=== PATIENT | female | born 1995 | race Caucasian/White ===

== ENCOUNTER 2020-10-04 13:25 | Emergency (ER) | payer OTHER ==
[2020-10-04 14:11] LABS: Urine Blood 2+ (NEG); Urine Glucose NEGATIVE (NEG); Urine Protein 2+ (NEG)
[2020-10-04 14:11] LABS: Absolute Lymphocytes (CBC) 2.3 K/uL (0.7-4.9); Basophils % 0.7 % (0-1.3); Hematocrit 37.2 % (36.0-45.0); Lymphocytes % 23.8 % (15.3-44.8); MPV 9.3 fL (7.6-11.3); RBC Red Blood Cell Count 4.47 M/uL (3.86-4.86)
[2020-10-04 14:54] LABS: Potassium 3.4 mmol/L (3.5-5.1)
[2020-10-04] MEDS ORDERED: NA CHLORIDE 0.9% 1,000 ML ONE (15:02)
--- NOTE | 2020-10-04 16:18 | RAD REPORT ---
EXAM DESCRIPTION: US - 1St Trimest Single 1St Fetus - 10/04/2020 3:41 pm CLINICAL HISTORY: with vaginal bleeding COMPARISON: None. FINDINGS: The uterus measures 9 x 5 x 5 centimeters. A normal appearing gestational sac is present within the endometrium. Within this is a yolk sac and pole with a crown-rump length 2.2 centime ters. Cardiac activity 182 beats per minute 2 centimeter subchorionic bleed Right and left ovary appear normal. . Right and left adnexa unremarkable No significant free fluid is seen. IMPRESSION: Single live intrauterine with an estimated gestational age 8 weeks 5 days AUBREY 05/11/2021 2 centimeter subchorionic bleed
--- NOTE | 2020-10-04 16:35 | EDPHYS ---
Physician Documentation [facility] Name: Sven Richards Age: 24 yrs Sex: Female : 1995 Arrival Date: 10/04/2020 Time: 13:27 Bed 20 Private MD: ED Physician Suman Montano HPI: 10/04 13:52 This 24 yrs old Female presents to ER via Ambulatory with complaints of pm1 Vaginal Bleeding, + Preg <12wks. 13:52 The patient presents to the emergency department with vaginal bleeding, that is light, pm1 present with wiping. The estimated gestational age is 10 weeks. course: care: private OB physician, Last seen OB 3 weeks ago, Leakage of Fluid: none appreciated, Ultrasound: the patient has not had an ultrasound, Risk/complications: no obvious risks or complications are appreciated. Previous pregnancies: in previous pregnancies patient has had hypertension with prior . Associated signs and symptoms: Pertinent positives: vaginal bleeding, Pertinent negatives: abdominal pain, chest pain, diarrhea, dysuria, fever, nausea, vaginal discharge, vomiting. The patient has not experienced similar symptoms in the past. Onset this AM. 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 - Social history:: Smoking status: Patient denies any tobacco usage or history of. ROS: 13:52 Constitutional: Negative for fever, chills, and weight loss, Cardiovascular: Negative pm1 for chest pain, palpitations, and edema, Respiratory: Negative for shortness of breath, cough, wheezing, and pleuritic chest pain, Abdomen/GI: Negative for abdominal pain, nausea, vomiting, diarrhea, and constipation, Back: Negative for injury and pain, MS/Extremity: Negative for injury and deformity, Skin: Negative for injury, rash, and discoloration, Neuro: Negative for headache, weakness, numbness, tingling, and seizure. 13:52 : Positive for vaginal bleeding, Negative for urinary symptoms, pelvic pain, flank pain, vaginal discharge. Exam: 13:52 Constitutional: This is a well developed, well nourished patient who is awake, alert, pm1 and in no acute distress. Head/Face: Normocephalic, atraumatic. 13:52 Back: No spinal tenderness. No costovertebral tenderness. Full range of motion. Skin: Warm, dry with normal turgor. Normal color with no rashes, no lesions, and no evidence of cellulitis. MS/ Extremity: Pulses equal, no cyanosis. Neurovascular intact. Full, normal range of motion. 13:52 Cardiovascular: Exam negative for acute changes, Rate: normal, Rhythm: regular, Pulses: no pulse deficits are appreciated. 13:52 Respiratory: Exam negative for acute changes, respiratory distress, shortness of breath. 13:52 Abdomen/GI: Inspection: abdomen appears normal, Palpation: abdomen is soft and non-tender, in all quadrants. 13:52 Neuro: Exam negative for acute changes, Orientation: is normal, Mentation: is normal, Motor: is normal, moves all fours, Gait: is steady, at a normal pace, without difficulty. Vital Signs: 13:30 BP 137 / 84; Pulse 91; Resp 17 S; Temp 98.0(O); Pulse Ox 100% on R/A; Weight 81.65 kg jd3 (R); Height 5 ft. 5 in. (165.10 cm) (R); Pain 1/10; 14:27 BP 118 / 66; Pulse 88; Resp 16; Pulse Ox 100% ; bp 15:30 BP 124 / 77; Pulse 81; Resp 16; Pulse Ox 100% ; bp 16:30 BP 125 / 78; Pulse 88; Resp 17; Temp 98; Pulse Ox 100% ; bp 13:30 Body Mass Index 29.95 (81.65 kg, 165.10 cm) jd3 MDM: 13:41 ED course: Discussed plan of care in the ER with the patient and . They had no pm1 further questions or concerns. 13:52 Patient medically screened. pm1 14:02 Data reviewed: vital signs. Data interpreted: Pulse oximetry: on room air is 100 %. pm1 Interpretation: normal. 16:33 Counseling: I had a detailed discussion with the patient and/or guardian regarding: the pm1 historical points, exam findings, and any diagnostic results supporting the discharge/admit diagnosis, lab results, radiology results, the need for outpatient follow up, for definitive care, an OB/Gyne specialist, to return to the emergency department if symptoms worsen or persist or if there are any questions or concerns that arise at home. 10/04 13:40 Order name: Quantitative Hcg; Complete Time: 15:05 pm1 10/04 13:40 Order name: Abo/rh Typing; Complete Time: 14:43 pm1 10/04 13:40 Order name: Basic Metabolic Panel; Complete Time: 15:05 pm1 10/04 13:40 Order name: CBC with Diff; Complete Time: 14:43 pm1 10/04 14:01 Order name: Urine Dipstick--Ancillary (enter results); Complete Time: 14:43 eb 10/04 14:01 Order name: Urine --Ancillary (enter results); Complete Time: 14:43 eb 10/04 13:40 Order name: Urine Test (obtain specimen); Complete Time: 14:26 pm1 10/04 13:40 Order name: IV Saline Lock; Complete Time: 14:26 pm1 10/04 13:40 Order name: Labs collected and sent; Complete Time: 14:26 pm1 10/04 13:40 Order name: NPO; Complete Time: 13:41 pm1 10/04 13:40 Order name: Urine Dipstick-Ancillary (obtain specimen); Complete Time: 14:26 pm1 10/04 15:42 Order name: 1St Trimest Single 1St Fetus; Complete Time: 16:33 EDMS Administered Medications: 14:48 Drug: NS 0.9% 1000 ml Route: IV; Rate: 1000 ml; Site: right antecubital; bp 16:49 Follow up: IV Status: Completed infusion; IV Intake: 1000ml bp Disposition: 10/05 11:10 Co-signature as Attending Physician, Suman Montano MD I agree with the assessment ma2 and plan of care. Disposition: 10/04/20 16:34 Discharged to Home. Impression: Threatened . - Condition is Stable. - Discharge Instructions: Threatened Miscarriage, Pelvic Rest. - Medication Reconciliation Form, Thank You Letter, Antibiotic Education, Prescription Opioid Use form. - Follow up: Emergency Department; When: As needed; Reason: Worsening of condition. Follow up: Private Physician; When: 2 - 3 days; Reason: Recheck today's complaints, Continuance of care, Re-evaluation by your physician. - Problem is new. - Symptoms have improved. Signatures: Dispatcher [employer] [facility] Good Nava, FUR BLOWER FUR BLOWER pm1 Andrea Michelle, RN RN jd3 Bravo Cox RN RN bp Suman Montano MD MD ma2 Corrections: (The following items were deleted from the chart) 10/04 15:42 13:41 Transvaginal Ob+US.RAD.BRZ ordered. [facility] 16:50 16:34 10/04/2020 16:34 Discharged to Home. Impression: Threatened . Condition bp is Stable. Forms are Medication Reconciliation Form, Thank You Letter, Antibiotic Education, Prescription Opioid Use. Follow up: Emergency Department; When: As needed; Reason: Worsening of condition. Follow up: Private Physician; When: 2 - 3 days; Reason: Recheck today's complaints, Continuance of care, Re-evaluation by your physician. Problem is new. Symptoms have improved. pm1
--- NOTE | 2020-10-04 16:35 | ER ---
Nurse's Notes [facility] Name: Sven Richards Age: 24 yrs Sex: Female : 1995 Arrival Date: 10/04/2020 Time: 13:27 Bed 20 Private MD: Diagnosis: Threatened Presentation: 10/04 13:28 Chief complaint: Patient states: "I am about 10 weeks and I started having jd3 bleeding today.". Coronavirus screen: At this time, the client does not indicate any symptoms associated with coronavirus-19. Ebola Screen: Patient negative for fever greater than or equal to 101.5 degrees Fahrenheit, and additional compatible Ebola Virus Disease symptoms. Initial Sepsis Screen: Does the patient meet any 2 criteria? No. Patient's initial sepsis screen is negative. Does the patient have a suspected source of infection? No. Patient's initial sepsis screen is negative. Risk Assessment: Do you want to hurt yourself or someone else? Patient reports no desire to harm self or others. Onset of symptoms was October 04, 2020. 13:28 Method Of Arrival: Ambulatory j 13:28 Acuity: ABDI 3 jd3 Triage Assessment: 13:30 General: Appears in no apparent distress. comfortable, Behavior is cooperative, bp appropriate for age, anxious. Pain: Denies pain. EENT: No deficits noted. Neuro: No deficits noted. Cardiovascular: No deficits noted. Respiratory: No deficits noted. GI: No signs and/or symptoms were reported involving the gastrointestinal system. : Reports vaginal bleeding that is spotty. Derm: No deficits noted. Musculoskeletal: No deficits noted. 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 - Social history:: Smoking status: Patient denies any tobacco usage or history of. Screenin:34 Abuse screen: Denies threats or abuse. Denies injuries from another. Nutritional bp screening: No deficits noted. Tuberculosis screening: No symptoms or risk factors identified. Fall Risk None identified. Assessment: 13:34 Obstetrical Assessment: General assessment: awake and alert, skin warm and dry, bp respirations even and unlabored. General: SEE TRIAGE NOTE. 14:30 Reassessment: Patient appears in no apparent distress at this time. No changes from bp previously documented assessment. U/S PENDING. 15:29 Reassessment: Patient appears in no apparent distress at this time. No changes from bp previously documented assessment. Patient is alert, oriented x 3, equal unlabored respirations, skin warm/dry/pink. U/S AT B/S. 16:47 Reassessment: PT D/C HOME AMBULATORY WITH FAMILY, DX WITH THREATENED . bp Vital Signs: 13:30 BP 137 / 84; Pulse 91; Resp 17 S; Temp 98.0(O); Pulse Ox 100% on R/A; Weight 81.65 kg jd3 (R); Height 5 ft. 5 in. (165.10 cm) (R); Pain 1/10; 14:27 BP 118 / 66; Pulse 88; Resp 16; Pulse Ox 100% ; bp 15:30 BP 124 / 77; Pulse 81; Resp 16; Pulse Ox 100% ; bp 16:30 BP 125 / 78; Pulse 88; Resp 17; Temp 98; Pulse Ox 100% ; bp 13:30 Body Mass Index 29.95 (81.65 kg, 165.10 cm) jd3 ED Course: 13:27 Patient arrived in ED. as 13:29 Triage completed. jd3 13:32 Bravo Cox, CRISTÓBAL is Primary Nurse. bp 13:32 Good Nava NP is PHCP. pm1 13:32 Suman Montano MD is Attending Physician. pm1 13:32 Arm band placed on. jd3 13:34 Patient has correct armband on for positive identification. Bed in low position. Call bp light in reach. Side rails up X2. 13:55 Inserted saline lock: 20 gauge in right antecubital area, using aseptic technique. bp Blood collected. 15:42 1St Trimest Single 1St Fetus In Process Unspecified. EDMS 16:48 No provider procedures requiring assistance completed. IV discontinued, intact, bp bleeding controlled, No redness/swelling at site. Pressure dressing applied. Administered Medications: 14:48 Drug: NS 0.9% 1000 ml Route: IV; Rate: 1000 ml; Site: right antecubital; bp 16:49 Follow up: IV Status: Completed infusion; IV Intake: 1000ml bp Intake: 16:49 IV: 1000ml; Total: 1000ml. bp Outcome: 16:34 Discharge ordered by . pm1 16:48 Discharged to home ambulatory, with family. bp 16:48 Condition: stable 16:48 Discharge instructions given to patient, Instructed on discharge instructions, follow up and referral plans. safe sex practices, Demonstrated understanding of instructions, follow-up care. 16:50 Patient left the ED. bp Signatures: Dispatcher [employer] EDVeronica Payne Patrick, NP ASTRONOMY TEACHER pm1 Andrea Michelle RN RN jBravo Larose RN RN bp
[2020-10-04 19:49] VITALS: O2SAT 100
[2020-10-04 19:58] VITALS: BP 125/78; TEMP 98
== END 2020-10-04 16:50 | disposition home or self-care (01) ==
LOC: ER 13:25
DX: O20.0 Threatened abortion (principal); Z3A.10 10 weeks gestation of pregnancy; Z88.5 Allergy status to narcotic agent; Z91.048 Other nonmedicinal substance allergy status
CPT/HCPCS: 96361; 85025; 80048; 36415; 86900; 81025; 86901; 84702; 81003; 76801; 96360; 99284; J7030